=== PATIENT | male | born 1945 | race Caucasian/White ===

== ENCOUNTER → 2017-02-21 | Outpatient (CLI) | payer MEDICARE, OTHER ==
[~2017-02-21] MED LIST: AMARYL4 MG PO; CRESTOR20 MG PO; PRILOSEC20 MG PO; PRINIVIL (ZESTR20 MG PO
== END | disposition disaster alternative care site (69) ==
LOC: GAMB 20:52
DX: R11.2 Nausea with vomiting, unspecified (principal); R53.1 Weakness; R42 Dizziness and giddiness; R07.89 Other chest pain; Z86.69 Personal history of other diseases of the nervous system and sense organs; Z86.79 Personal history of other diseases of the circulatory system; Z79.899 Other long term (current) drug therapy